=== PATIENT | male | born 1980 | race Two or more races ===

== ENCOUNTER 2017-06-25 11:47 | Emergency (ER) | payer OTHER ==
[~2017-06-25] VITALS: Ht 162.6 cm; Wt 69.8 kg
[2017-06-25 11:52] VITALS: Ht 162.6 cm; Wt 69.8 kg
[2017-06-25 13:54] VITALS: BP 142/71
== END 2017-06-25 13:54 | disposition home or self-care (01) ==
LOC: ED 11:47
DX: S62.633A Displaced fracture of distal phalanx of left middle finger, initial encounter for closed fracture (principal); W26.8XXA Contact with other sharp object(s), not elsewhere classified, initial encounter; Y93.89 Activity, other specified; Y92.89 Other specified places as the place of occurrence of the external cause; Y99.8 Other external cause status
CPT/HCPCS: 90715; Q0092